=== PATIENT | female | born 1950 | race Caucasian/White ===

== ENCOUNTER → 2021-02-16 | Outpatient (CLI) | payer OTHER | LOC: MAMO 08:27 → EXRD 08:27 | DX: Z12.31 Encounter for screening mammogram for malignant neoplasm of breast (principal); Z78.0 Asymptomatic menopausal state | CPT/HCPCS: 77063; 77067; 77080 ==

== ENCOUNTER → 2022-01-19 | Outpatient (CLI) | payer OTHER | LOC: EXRD 10:47 | DX: R05.9 Cough, unspecified (principal); R91.8 Other nonspecific abnormal finding of lung field | CPT/HCPCS: 71046 ==